=== PATIENT | male | born 2000 | race Caucasian/White ===

== ENCOUNTER 2018-11-17 23:19 | Emergency (ER) | payer SELFPAY ==
[~2018-11-17] VITALS: Ht 177.8 cm; Wt 68.2 kg
[2018-11-17 23:21] VITALS: BP 104/66; TEMP 96.6
[2018-11-18 02:08] VITALS: PULSE 88
== END 2018-11-18 02:08 | disposition home or self-care (01) ==
LOC: COL.ER 23:19
DX: F10.129 Alcohol abuse with intoxication, unspecified (principal); Y90.8 Blood alcohol level of 240 mg/100 ml or more
CPT/HCPCS: J2405; J7030